=== PATIENT | female | born 1960 | race Two or more races ===

== ENCOUNTER 2022-12-30 08:45 | Inpatient (IN) | payer OTHER ==
[~2022-12-30] VITALS: Ht 162.6 cm; Wt 68.0 kg
[2023-01-05] MEDS ORDERED: OMEGA-3 ACID ETH1 GM (08:06)
[2023-01-05] MEDS ORDERED: LOSARTAN POTASS50 MG (08:06)
[2023-01-05] MEDS ORDERED: SIMVASTATIN40 MG (08:06)
[2023-01-05] MEDS ORDERED: OMEPRAZOLE20 MG (08:06)
[2023-01-05] MEDS ORDERED: FAMOTIDINE40 MG (08:06)
== END 2023-01-07 15:38 | disposition home or self-care (01) | DRG 330 ==
LOC: SURH 01-04 08:45 → O/R 01-04 15:19 → SURH 01-04 15:19
PROVIDERS: ADMIT Colon & Rectal Surgery; ATTEND Colon & Rectal Surgery
PROC: 0DBP4ZZ Excision of Rectum, Percutaneous Endoscopic Approach (ICD-10-PCS; 2023-01-04)
PROC: 0DTN4ZZ Resection of Sigmoid Colon, Percutaneous Endoscopic Approach (ICD-10-PCS; 2023-01-04)
PROC: 0WQF4ZZ Repair Abdominal Wall, Percutaneous Endoscopic Approach (ICD-10-PCS; 2023-01-04)
PROC: 0DJD8ZZ Inspection of Lower Intestinal Tract, Via Natural or Artificial Opening Endoscopic (ICD-10-PCS; 2023-01-04)
PROC: 0DBM4ZZ Excision of Descending Colon, Percutaneous Endoscopic Approach (ICD-10-PCS; principal; 2023-01-04 10:30)
DX: K57.20 Diverticulitis of large intestine with perforation and abscess without bleeding (principal); K92.1 Melena; K43.2 Incisional hernia without obstruction or gangrene; N73.6 Female pelvic peritoneal adhesions (postinfective); N99.4 Postprocedural pelvic peritoneal adhesions; Z43.3 Encounter for attention to colostomy; Z20.822 Contact with and (suspected) exposure to COVID-19